=== PATIENT | female | born 1980 | race Caucasian/White ===

== ENCOUNTER 2021-09-22 14:30 | Outpatient (CLI) | payer MEDICARE, MEDICAID ==
[2021-09-22 15:58] LABS: CLARITY,URINE SLIGHTLY CLOUDY (Clear); COLOR,URINE YELLOW (Yellow); GLUCOSE, URINE NEGATIVE (Neg); KETONES,URINE TRACE mg/dl (Neg); LEUKOCYTE ESTERASE ,URINE NEGATIVE (Neg); NITRITES, URINE NEGATIVE (Neg); OCCULT BLOOD,URINE NEGATIVE (Neg); PROTEIN,URINE NEGATIVE (Neg)
[2021-09-22 16:00] LABS: UA COLLECTION TYPE NON-SPECIFIED
[2021-09-22 16:08] LABS: BASOPHILS # (AUTO) 0.1 X10'3 (0-0.2); BASOPHILS % (AUTO) 1.3 % (0-1); EOSINOPHILS # (AUTO) 0.4 X10'3 (0-0.9); LYMPHOCYTES # (AUTO) 1.7 X10'3 (1.1-4.8); LYMPHOCYTES % (AUTO) 21.9 % (21-51); MEAN CORPUSCULAR HEMOGLOBIN 24.2 PG (27.0-31.0); MEAN CORPUSCULAR HGB CONC 32.8 g/dL (33.0-36.5); MEAN CORPUSCULAR VOLUME 73.9 FL (78-98); MEAN PLATELET VOLUME 7.7 FL (7.4-10.4); MONOCYTES # (AUTO) 0.5 X10'3 (0-0.9); MONOCYTES % (AUTO) 6.8 % (2-12); NEUTROPHILS # (AUTO) 5.1 X10'3 (1.8-7.7); PRE OP HEMATOCRIT 35.4 % (35.0-45.0); PRE OP HEMOGLOBIN 11.6 g/dL (12.0-16.0); PRE OP PLATELET COUNT 316 X10'3 (140-440); RED BLOOD COUNT 4.78 X10'6 (4.20-5.60); RED CELL DISTRIBUTION WIDTH 19.2 % (11.5-14.5)
[2021-09-22 16:13] LABS: MUCUS STRANDS MANY /LPF (Neg); SQUAMOUS EPITHELIAL CELL,UR MANY /LPF (FEW)
[2021-09-22 16:13] LABS: ALKALINE PHOSPHATASE 157 IU/L (46-116); BLOOD UREA NITROGEN 15 MG/DL (7-18); BUN/CREATININE RATIO 16.9 (6.6-38.0); CALCIUM 8.3 MG/DL (8.5-10.1); CHLORIDE 105 MMOL/L (99-107); CREATININE 0.89 MG/DL (0.40-0.90); PRE OP ALT 18 U/L (30-65); PRE OP ANION GAP 11 (8-16); PRE OP AST 15 U/L (10-37); PRE OP BILIRUB, TOTAL 0.1 MG/DL (0.0-1.0); PRE OP GLUCOSE 132 MG/DL (70-104); PRE OP POTASSIUM 3.8 MMOL/L (3.4-5.1); PRE OP SODIUM 141 MMOL/L (135-145); TOTAL CARBON DIOXIDE 25.4 MMOL/L (24-32); TOTAL PROTEIN 8.1 G/DL (6.4-8.2); eGFR 71 ML/MIN
[2021-09-22 16:17] LABS: WBC,URINE 0-4 /HPF (0-4)
[2021-09-22 16:21] LABS: BACTERIA,URINE 3+ /HPF (Neg); RBC,URINE 0-2 /HPF (0-2)
[2021-09-22] MEDS ORDERED: BECL10.62 INH (16:21)
[2021-09-22] MEDS ORDERED: PRAZ1CAP5 PO (16:21)
[2021-09-22] MEDS ORDERED: HYDR-3686 PO (16:21)
[2021-09-22] MEDS ORDERED: THYR30TA2 PO (16:21)
[2021-09-22] MEDS ORDERED: OMEP-50 PO (16:21)
[2021-09-22] MEDS ORDERED: TRAM50TA2 PO (16:21)
[2021-09-22] MEDS ORDERED: GABA300C PO (16:21)
[2021-09-22] MEDS ORDERED: AMLO10TA48 PO (16:21)
[2021-09-22] MEDS ORDERED: SUMA6VIA17 SQ (16:21)
[2021-09-22] MEDS ORDERED: ALBU1.256 NEB (16:21)
[2021-09-22] MEDS ORDERED: UBID300C PO (16:21)
[2021-09-22] MEDS ORDERED: IPRA3AMP31 IH (16:21)
[2021-09-22] MEDS ORDERED: MELA3TAB39 PO (16:21)
[2021-09-22] MEDS ORDERED: LAMO200T10 PO (16:21)
[2021-09-22] MEDS ORDERED: SUMA50TA PO (16:21)
[2021-09-22] MEDS ORDERED: MONT10TA21 PO (16:21)
[2021-09-22] MEDS ORDERED: TOPI25TA49 PO ×2 (16:21)
[2021-09-22] MEDS ORDERED: PARO30TA73 PO (16:21)
[2021-09-22 16:22] LABS: YEAST FEW /HPF (NEGATIVE)
[2021-09-22 17:05] LABS: ANISOCYTOSIS 2+; MICROCYTOSIS 1+; PLATELET ESTIMATE NORMAL
[2021-09-22 17:07] LABS: SPHEROCYTES 1+
[2021-10-16] MEDS ORDERED: PRAZ1CAP5 PO (11:01)
[2021-10-16] MEDS ORDERED: FLUT12AE9 PO (11:01)
== END 2021-09-22 23:59 | disposition home or self-care (01) ==
LOC: PRE-OP 14:30 → EDSTATUS 09-29 07:30
PROVIDERS: ATTEND Podiatrist Foot & Ankle Surgery
DX: Z01.818 Encounter for other preprocedural examination (principal); M25.471 Effusion, right ankle; M76.71 Peroneal tendinitis, right leg; M25.571 Pain in right ankle and joints of right foot; M25.371 Other instability, right ankle; Z20.822 Contact with and (suspected) exposure to COVID-19
CPT/HCPCS: 36415; 80053; 81001; 85025; 93005; U0003; U0005; 85008

== ENCOUNTER 2021-10-20 07:08 | Day surgery (SDC) | payer MEDICARE, MEDICAID ==
[2021-10-16 11:12] LABS: BASOPHILS # (AUTO) 0.1 X10'3 (0-0.2); EOSINOPHILS # (AUTO) 0.3 X10'3 (0-0.9); EOSINOPHILS % (AUTO) 3.5 % (0-6); HEMOGLOBIN 11.1 g/dl (12.0-16.0); LYMPHOCYTES # (AUTO) 1.3 X10'3 (1.1-4.8); LYMPHOCYTES % (AUTO) 18.1 % (21-51); MEAN CORPUSCULAR HEMOGLOBIN 23.4 PG (27.0-31.0); MEAN CORPUSCULAR HGB CONC 31.6 g/dL (33.0-36.5); MEAN CORPUSCULAR VOLUME 74.1 FL (78-98); MEAN PLATELET VOLUME 7.5 FL (7.4-10.4); MONOCYTES # (AUTO) 0.5 X10'3 (0-0.9); MONOCYTES % (AUTO) 6.3 % (2-12); NEUTROPHILS # (AUTO) 5.2 X10'3 (1.8-7.7); NEUTROPHILS % (AUTO) 71.1 % (42-75); PLATELET COUNT 307 X10'3 (140-440); RED BLOOD COUNT 4.73 X10'6 (4.20-5.60); RED CELL DISTRIBUTION WIDTH 19.1 % (11.5-14.5); WHITE BLOOD COUNT 7.4 X10'3 (4.5-11.0)
[2021-10-16 11:24] LABS: CLARITY,URINE CLEAR (Clear); COLOR,URINE YELLOW (Yellow); GLUCOSE, URINE NEGATIVE (Neg); KETONES,URINE NEGATIVE (Neg); LEUKOCYTE ESTERASE ,URINE NEGATIVE (Neg); NITRITES, URINE NEGATIVE (Neg); OCCULT BLOOD,URINE TRACE-LYSED (Neg); PH,URINE 5.5 (4.8-8.0); PROTEIN,URINE NEGATIVE (Neg); UROBILINOGEN,URINE 0.2 E.U/dL (0.2-1.0)
[2021-10-16 11:29] LABS: UA COLLECTION TYPE CLN CATCH MIDSTREAM
[2021-10-16 11:31] LABS: MUCUS STRANDS FEW /LPF (Neg); RBC,URINE 0-2 /HPF (0-2); SQUAMOUS EPITHELIAL CELL,UR MODERATE /LPF (FEW); WBC,URINE 0-4 /HPF (0-4)
[2021-10-16 11:32] LABS: BACTERIA,URINE 2+ /HPF (Neg)
[2021-10-16 11:37] LABS: ALANINE AMINOTRANSFERASE 22 U/L (12-78); ALKALINE PHOSPHATASE 122 IU/L (46-116); ANION GAP 10 (8-16); ASPARTATE AMINO TRANSFERASE 20 U/L (10-37); BILIRUBIN,TOTAL 0.2 MG/DL (0.1-1.0); BLOOD UREA NITROGEN 18 MG/DL (7-18); BUN/CREATININE RATIO 20.2 (6.6-38.0); CHLORIDE 104 MMOL/L (99-107); CREATININE 0.89 MG/DL (0.40-0.90); GLUCOSE 109 MG/DL (70-104); POTASSIUM 3.6 MMOL/L (3.5-5.1); SODIUM 138 MMOL/L (135-145); TOTAL CARBON DIOXIDE 23.8 MMOL/L (24-32); TOTAL PROTEIN 8.1 G/DL (6.4-8.2); eGFR 71 ML/MIN
[2021-10-16 11:41] LABS: HCG SERUM QL NEGATIVE
[2021-10-16 12:02] LABS: LARGE PLATELETS FEW; PLATELET ESTIMATE NORMAL
[2021-10-16 12:03] LABS: ANISOCYTOSIS 2+; ELLIPTOCYTES FEW; HYPOCHROMASIA 1+; MICROCYTOSIS 1+
[2021-10-20] VITALS (9 sets, daily range): BP systolic 107–131; BP diastolic 55–76
[~2021-10-20] VITALS: Ht 160 cm; Wt 146.0 kg
[~2021-10-20 07:08] MED LIST: ALBU1.256 NEB; AMLO10TA48 PO; FLUT12AE9 PO; GABA300C PO; HYDR-3686 PO; IPRA3AMP31 IH; LAMO200T10 PO; MONT10TA21 PO; OMEP-50 PO; PARO30TA73 PO; PRAZ1CAP5 PO; SUMA50TA PO; SUMA6VIA17 SQ; THYR30TA2 PO; TOPI25TA49 PO; TRAM50TA2 PO; albuterol 2.5 MG/3 ML nebule NEB ONE; ceFAZolin inj. 3,000 MG in normal saline 100ml IV soln 100 ML IV ONE; famotidine 20mg tablet PO ONE; ringers solution, lacted 1,000 ML IV SCH
[2021-10-20] MEDS ORDERED: dexamethasone sod phosphate 10mg/ml inj ONE (09:22)
[2021-10-20] MEDS ORDERED: sevoflurane 250ml liquid IH ONE (09:22)
[2021-10-20] MEDS ORDERED: fentaNYL/PF 50MCG/1 ML 2ML syringe ONE (09:24)
[2021-10-20] MEDS ORDERED: MIDAZolam 1mg/ml 10ml vial ONE (09:24)
[2021-10-20] MEDS ORDERED: ondansetron/PF 4mg/2ml inj ONE (10:01)
[2021-10-20] MEDS ORDERED: succinylcholine 20mg/ml inj IV ONE (10:02)
[2021-10-20] MEDS ORDERED: LIDOcaine 2% (20mg/ml) 5ml vial ONE (10:02)
[2021-10-20] MEDS ORDERED: propofol inj 20 ML IV ONE (10:02)
[2021-10-20] MEDS ORDERED: ROPIVAcaine 0.5% (5mg/ml) 30ml vial ONE ×2 (10:02)
[2021-10-20] MEDS ORDERED: hydrALAZINE 20mg/ml inj. IV PRN (10:40)
[2021-10-20] MEDS ORDERED: labetalol 20mg/4ml (5mg/ml) syringe IV PRN (10:40)
[2021-10-20] MEDS ORDERED: ROPIVAcaine 0.2%/PF PUMP/bolus 545 ML POPLITEAL SCH (10:40)
[2021-10-20] MEDS ORDERED: ringers solution, lacted 1,000 ML IV SCH (10:40)
[2021-10-20] MEDS ORDERED: ROPIVAcaine 0.2% (10 MG/5 ML) BOLUS INJECTION POPLITEAL PRN (10:40)
[2021-10-20] MEDS ORDERED: ondansetron/PF 4mg/2ml inj IV PRN (10:40)
[2021-10-20] MEDS ORDERED: morphine 2 MG/ML inj. syringe IV PRN (10:40)
[2021-10-20] MEDS ORDERED: morphine 4 MG/ML inj SYRINge IV PRN (10:40)
[2021-10-20] MEDS ORDERED: fentaNYL/PF 50MCG/1 ML 2ML syringe IV PRN ×2 (10:40)
[2021-10-20] MEDS ORDERED: bacitracin 15gm ointment TP ONE (11:30)
--- NOTE | 2021-10-20 11:58 | NUR ---
Received from OR via [facility] , accompanied by Anesthesiologist TEODORA and report given by Anesthesiolgist. PATIENT WITH 20G PIKV IN LEFT UE RUNNING LR AT 100. MEDICATED FOR PAIN UPON ARRIVAL VIA ANESTHESIA. + CAP REFILL TO ALL TOES. PWD, MOVES ALL TOES TO RIGHT FOOT. SPLINT AND MUKUND DRESSING TO RIGHT LE. + CAP REFILL. CSM. Addendum: 10/20/21 at 1208 by Gavin Xiao RN, RN Amended: Links added.
[2021-10-20] MEDS ORDERED: HYDROcodone/acetaminophen 5mg/325mg tablet PO ONE (12:20)
--- NOTE | 2021-10-20 13:08 | NUR ---
ALL DISCHARGE CRITERIA HAS BEEN MET. VSS, PAIN AT A TOLERABLE LEVEL, VOIDING AND ABLE TO SAFELY AMBULATE AND TRANSFER SELF. IV TAKEN OUT WITHOUT ANY COMPLICATIONS. ALL DISCHARGE INSTRUCTIONS COVERED WITH PATIENT AND ALL QUESTIONS ANSWERED. PATIENT TAKEN OUT VIA WHEELCHAIR TO PERSONAL VEHICLE WHERE FAMILY/FRIEND DROVE PATIENT HOME. REINFORCED TO PATIENT ON USE OF INCENTIVE SPIROMETER AND CPAP X24 HOURS ONCE HOME EXCEPT FOR EATING AND DRINKING. Addendum: 10/20/21 at 1330 by Gavin Xiao RN, RN Amended: Links added.
== END 2021-10-20 13:08 | disposition home or self-care (01) ==
LOC: PAS 07:08
PROVIDERS: ATTEND Podiatrist Foot & Ankle Surgery
DX: M25.571 Pain in right ankle and joints of right foot (principal); M25.371 Other instability, right ankle; M65.871 Other synovitis and tenosynovitis, right ankle and foot; S86.311A Strain of muscle(s) and tendon(s) of peroneal muscle group at lower leg level, right leg, initial encounter; G89.18 Other acute postprocedural pain; I10 Essential (primary) hypertension; J45.909 Unspecified asthma, uncomplicated; G47.30 Sleep apnea, unspecified; K21.9 Gastro-esophageal reflux disease without esophagitis; F32.A Depression, unspecified; F43.10 Post-traumatic stress disorder, unspecified; E66.01 Morbid (severe) obesity due to excess calories; Z68.43 Body mass index [BMI] 50.0-59.9, adult; Z88.8 Allergy status to other drugs, medicaments and biological substances; Z79.82 Long term (current) use of aspirin; Z79.899 Other long term (current) drug therapy; X58.XXXA Exposure to other specified factors, initial encounter; Y93.89 Activity, other specified; Y92.89 Other specified places as the place of occurrence of the external cause; Y99.8 Other external cause status
CPT/HCPCS: 27690; 27695; 29895; 36415; 64446; 64447; 71046; 76942; 80053; 81001; 82948; 84703; 85025; A6222; C1713; J0330; J0690; J1100; J2250; J2405; J2704; J2795; J3010; J3490; J7120; U0003; U0005; Z7506; Z7508; Z7512; 85008; A4618; A6449; A7000